=== PATIENT | female | born 1970 | race Two or more races ===

== ENCOUNTER 2017-08-22 13:56 | Emergency (ER) | payer MEDICARE, MEDICAID ==
[~2017-08-22] VITALS: Ht 149.9 cm; Wt 96.0 kg
[2017-08-22 13:57] VITALS: BP 130/87
[2017-08-22] MEDS ORDERED: BACDS PO (14:20)
[2017-08-22] MEDS ORDERED: sulfamethoxazole/trimethoprim DS (800/160mg) tablet PO ONE (14:20)
[2017-08-22] MEDS ORDERED: CEPH500C5 PO (14:20)
[2017-08-22] MEDS ORDERED: cephalexin 250mg capsule PO ONE (14:20)
== END 2017-08-22 14:45 | disposition home or self-care (01) ==
LOC: ER 13:57
DX: L03.115 Cellulitis of right lower limb (principal); Z79.2 Long term (current) use of antibiotics
CPT/HCPCS: 99283

== ENCOUNTER 2017-09-10 20:29 | Emergency (ER) | payer MEDICARE, MEDICAID ==
[~2017-09-10] VITALS: Ht 149.9 cm; Wt 100.0 kg
[~2017-09-10 20:29] MED LIST: BACDS PO; CEPH500C5 PO
[2017-09-10] MEDS ORDERED: CefTRIAXone 1000mg IM Kit (w/lidocaine diluent) IM ONE (21:00)
[2017-09-10] MEDS ORDERED: SULF1TAB49 PO (21:03)
[2017-09-10] MEDS ORDERED: CEPH500C5 PO (21:03)
[2017-09-10 21:30] VITALS: BP 140/58
== END 2017-09-10 21:39 | disposition home or self-care (01) ==
LOC: ER 20:30
DX: L03.116 Cellulitis of left lower limb (principal); L03.115 Cellulitis of right lower limb; Z79.899 Other long term (current) drug therapy
CPT/HCPCS: 96372; 99283; J0696

== ENCOUNTER 2022-06-14 18:31 | Emergency (ER) | payer BC, MEDICAID ==
[~2022-06-14] VITALS: Ht 152.4 cm; Wt 71.2 kg
[2022-06-14 19:18] VITALS: BP 111/79
[2022-06-14] MEDS ORDERED: NAPR-56 PO (20:22)
== END 2022-06-14 20:36 | disposition home or self-care (01) ==
LOC: ER 18:32
DX: M79.641 Pain in right hand (principal); M79.642 Pain in left hand; R22.33 Localized swelling, mass and lump, upper limb, bilateral; M19.90 Unspecified osteoarthritis, unspecified site; F41.9 Anxiety disorder, unspecified; M06.9 Rheumatoid arthritis, unspecified; Z79.899 Other long term (current) drug therapy
CPT/HCPCS: 73120; 99283